=== PATIENT | male | born 2000 | race African-American/Black ===

== ENCOUNTER 2021-05-09 11:25 | Emergency (ER) | payer MEDICAID ==
[~2021-05-09] VITALS: Ht 165.1 cm; Wt 61.0 kg
[2021-05-09 11:29] VITALS: BP 132/93
[2021-05-09] MEDS ORDERED: PREDNISONE 20MG TABLET PO STA (11:34)
[2021-05-09] MEDS ORDERED: ALBUTEROL (0.083%) 2.5MG/3ML NEB HHN STA (11:34)
[2021-05-09] MEDS ORDERED: IPRATROPIUM BROMIDE (0.02%) 0.5MG/2.5ML NEB HHN STA (11:34)
[2021-05-09] MEDS ORDERED: ALBU6.7H9 INH (11:38)
[2021-05-09] MEDS ORDERED: P20 MT (11:39)
== END 2021-05-09 12:15 | disposition left against medical advice (07) ==
LOC: ER 11:25
DX: J45.901 Unspecified asthma with (acute) exacerbation (principal); Z76.0 Encounter for issue of repeat prescription
CPT/HCPCS: 93005; 94644; 99285; J7512; Z7610